=== PATIENT | male | born 1950 | race Caucasian/White ===

== ENCOUNTER → 2017-03-20 | Outpatient (CLI) | payer OTHER ==
[~2017-03-20] MED LIST: ACETAMINOPHEN325 M1 PO; ALPRAZOLAM0.25 M1 PO; CARDIZEM CD180 MG PO; FLECAINIDE ACET50 M1 PO; LIPITOR20 MG PO; PRADAXA150 MG PO; PRILOSEC 20 MG20 MG PO
== END ==
LOC: RAD 09:45
DX: M51.36 Other intervertebral disc degeneration, lumbar region (principal)

== ENCOUNTER → 2018-01-01 | Outpatient (CLI) | payer OTHER | LOC: RAD 09:41 | DX: M47.892 Other spondylosis, cervical region (principal); M25.78 Osteophyte, vertebrae ==

== ENCOUNTER → 2020-08-03 | Outpatient (CLI) | payer OTHER | LOC: LAB 14:16 | PROVIDERS: ATTEND Family Medicine | DX: U07.1 COVID-19 (principal) ==

== ENCOUNTER → 2020-09-08 | Outpatient (CLI) | payer OTHER | LOC: LAB 12:12 | PROVIDERS: ATTEND Family Medicine | DX: Z20.828 Contact with and (suspected) exposure to other viral communicable diseases (principal) ==

== ENCOUNTER → 2021-10-25 | Outpatient (CLI) | payer OTHER | LOC: RAD 09:42 | PROVIDERS: ATTEND Nurse Practitioner | DX: S42.001D Fracture of unspecified part of right clavicle, subsequent encounter for fracture with routine healing (principal); J40 Bronchitis, not specified as acute or chronic; X58.XXXD Exposure to other specified factors, subsequent encounter ==